=== PATIENT | male | born 1960 | race Two or more races ===

== ENCOUNTER 2017-01-23 17:08 | Inpatient (IN) | payer MEDICARE, OTHER ==
[~2017-01-23] VITALS: Ht 182.9 cm; Wt 83.1 kg
--- NOTE | 2017-01-23 17:26 | NUR ---
LETTY FROM [facility] FOR FOOT WOUND TREATMENT AND EVALUATION. PATIENT IS AAO4. APPEARS IN NO APPARENT DISRESS, RESPIRATION EVEN AND UNLABORED. PT'S RIGHT COVERED WITH DRESSING, SPLINT ON LLE ALSO NOTED. PATIENT 'S HAD LEFT AKA.
[2017-01-23] MEDS ORDERED: IV NS 0.9% 1,000 ML BAG IV ONE (18:00)
[2017-01-23] MEDS ORDERED: PIPERACILLIN /TAZOBACTAM 3.375 G in IV D5W 50 ML IV ONE (18:00)
[2017-01-23 18:01] LABS: BASOPHILS % (AUTO) 0.5 % (0.0-2.0); EOSINOPHILS # (AUTO) 0.5 /CMM (0.0-0.7); HEMATOCRIT 28 % (39-51); HEMOGLOBIN 9.3 g/dL (13.5-17.5); LYMPHOCYTES # (AUTO) 2.4 /CMM (0.8-4.8); LYMPHOCYTES % (AUTO) 26.9 % (20.0-44.0); MEAN CORPUSCULAR HEMOGLOBIN 26 PG (26.0-33.0); MEAN CORPUSCULAR HGB CONC 33 g/dl (31.0-36.0); MEAN CORPUSCULAR VOLUME 79 fL (80-96); MONOCYTES # (AUTO) 0.6 /CMM (0.1-1.30); MONOCYTES % (AUTO) 7.1 % (2.0-12.0); NEUTROPHILS # (AUTO) 5.5 /CMM (1.8-8.9); NEUTROPHILS % (AUTO) 60.5 % (43.0-81.0); PLATELET COUNT (AUTO) 420 /CMM (150-450); RDW COEFFICIENT OF VARIATION 16.7 (11.5-15.0); RED BLOOD CELL COUNT(AUTO) 3.61 MIL/uL (4.5-6.0)
--- NOTE | 2017-01-23 18:02 | NUR ---
CALLED NURSING SUP. FOR MS BED
[2017-01-23 18:09] LABS: POTASSIUM 3.9 mmol/L (3.5-5.1)
[2017-01-23 18:12] LABS: INR 1.09 (0.87-1.13); PROTHROMBIN TIME 11.3 SECS (9.5-12.7)
[2017-01-23 18:15] LABS: ALBUMIN 1.9 g/dL (3.4-5.0); BILIRUBIN,TOTAL 0.1 mg/dL (0.2-1.0); TOTAL PROTEIN, SERUM 8.4 g/dL (6.4-8.2)
--- NOTE | 2017-01-23 18:15 | NUR ---
MS 327-2
[2017-01-23 18:16] LABS: CALCIUM, SERUM 7.8 mg/dL (8.5-10.1); CREATININE 1.9 mg/dL (0.6-1.3)
--- NOTE | 2017-01-23 18:27 | NUR ---
REPORT GIVEN TO KRISTI HAN FOR DEBORAH
--- NOTE | 2017-01-23 19:20 | NUR ---
WOUND DRESSING CHANGED/
--- NOTE | 2017-01-23 19:20 | NUR ---
transfer to [facility] - accepted by Aj LORA
--- NOTE | 2017-01-23 19:21 | NUR ---
[facility] TRANSPORTED TO [place]. [facility]
--- NOTE | 2017-01-23 19:30 | NUR ---
RN NOTES RECEIVED PT FROM ER WITH DX. OF RIGHT FOOT WOUND, A/OX3, PICC LINE ON THE LEFT UPPER ARM, DRESSING ON THE RIGHT FOOT DRY AND INTACT, BUT NEEDS TO OPEN THE DRESSING TO TAKE PICTURE OF THE WOUND. ADMISSION INSTRUCTION RENDERED, CALL LIGHT WITHIN REACH, SIDERAILS UPX2 CONTINUE TO MONITOR
[2017-01-23 20:00] VITALS: BP 139/70
--- NOTE | 2017-01-23 20:45 | NUR ---
RN NOTES PAGED DR. LR FOR ADMISSION ORDERS.. DR. LR WILL PUT THE ADMISSION ORDER IN THE COMPUTER
[2017-01-23] MEDS ORDERED: ALLO100T PO (20:57)
[2017-01-23] MEDS ORDERED: DOCU-25 PO (20:57)
[2017-01-23] MEDS ORDERED: ACET-868 PO (20:57)
[2017-01-23] MEDS ORDERED: EPOE4000 SQ (20:57)
[2017-01-23] MEDS ORDERED: ATOR40TA PO (20:57)
[2017-01-23] MEDS ORDERED: METF1000 PO (21:02)
[2017-01-23] MEDS ORDERED: GLIP10TA11 PO (21:02)
[2017-01-23] MEDS ORDERED: ASPI-605 PO (21:02)
[2017-01-23] MEDS ORDERED: INSU3INS6 SUBCUT (21:02)
[2017-01-23] MEDS ORDERED: LISI10TA5 PO (21:02)
[2017-01-23] MEDS ORDERED: ACETAMINOPHEN 325 MG TABLET PO PRN (21:30)
[2017-01-23] MEDS ORDERED: ONDANSETRON HCL/PF 4 MG/2 ML VIAL IVP PRN (21:30)
[2017-01-23] MEDS ORDERED: DEXTROSE 50%-WATER 50 ML DISP.SYRIN IV PRN (22:00)
[2017-01-23] MEDS ORDERED: *INSULIN REGULAR(HUMULIN R)HUM 100 UNIT/ML VIAL SQ PRN (22:00)
[2017-01-23] MEDS ORDERED: ATORVASTATIN 40 MG TABLET ONE (22:34)
[2017-01-23] MEDS: ATORVASTATIN 40 MG TABLET PO SCH (22:35)
[2017-01-23] MEDS: BLOOD SUGAR DIAGNOSTIC 1 EACH STRIP VI SCH (22:35)
--- NOTE | 2017-01-23 23:30 | NUR ---
RN NOTES SENIOR MANUFACTURING ENGINEER CALLED PHARMACY [facility] SPECIALIST FOR VANCOMYCIN ORDER. SPOKE TO ОЛЕГ SEARS AND GOT A TELEPHONE ORDER OF VANCOMYCIN 1 GM ONCE, ORDER NOTED AND CARRIED OUT
[2017-01-24] MEDS ORDERED: PIPERACILLIN /TAZOBACTAM 2.25 G VIAL IV ONE ×2 (00:11→05:05)
[2017-01-24] MEDS ORDERED: VANCOMYCIN 1 GM VIAL ONE (00:11)
[2017-01-24] MEDS: PIPERACILLIN /TAZOBACTAM 2.25 G in IV D5W 50 ML IV SCH ×2 (00:38→05:41)
[2017-01-24] MEDS: IV 1/2NS 1000 ML 1,000 ML IV PRN ×2 (00:38→20:30)
[2017-01-24] MEDS ORDERED: VANCOMYCIN 1 GM in IV D5W 250 ML IV SCH (01:00)
[2017-01-24] MEDS: BLOOD SUGAR DIAGNOSTIC 1 EACH STRIP VI SCH ×4 (06:14→21:26)
--- NOTE | 2017-01-24 06:30 | NUR ---
RN NOTES BLOOD SUGAR-137- REFUSED INSULIN
--- NOTE | 2017-01-24 06:59 | NUR ---
RN NOTES SLEEPING BUT AROUSABLE, DENIES PAIN, NO SOB, MORNING CARER RENDERED, CALL LIGHT WITHIN REACH, SIDERAILS UPX2 PT. NEEDS ATTENDED
--- NOTE | 2017-01-24 07:40 | NUR ---
RN NOTES RECEIVED PATIENT ASLEEP COMFORTABLY IN BED, EASILY AROUSABLE DURING CARE,ABLE TO MAKE NEEDS KNOWN. RESPIRATIONS EVEN AND UNLABORED, IN NO APPARENT PAIN OR DISCOMFORT AT THIS TIME. IV ACCESS PATENT AND INTACT NO REDNESS OR INFILTRATION NOTED AT THIS TIME MD AWARE, SAFETY MEASURES IN PLACE, WILL CONTINUE TO MONITOR
[2017-01-24 08:00] VITALS: BP 108/62
[2017-01-24 08:30] LABS: ALBUMIN 1.8 g/dL (3.4-5.0); BILIRUBIN,TOTAL 0.2 mg/dL (0.2-1.0); CALCIUM, SERUM 7.9 mg/dL (8.5-10.1); CREATININE 1.7 mg/dL (0.6-1.3); MAGNESIUM 1.8 mg/dL (1.8-2.4); PHOSPHORUS 3.3 mg/dL (2.5-4.9); POTASSIUM 3.8 mmol/L (3.5-5.1)
[2017-01-24 08:31] LABS: THYROID STIMULATING HORMONE 0.697 uIU/mL (0.358-3.74)
[2017-01-24 08:40] LABS: BASOPHILS # (AUTO) 0.1 /CMM (0.0-0.2); BASOPHILS % (AUTO) 0.7 % (0.0-2.0); EOSINOPHILS # (AUTO) 0.5 /CMM (0.0-0.7); EOSINOPHILS % (AUTO) 5.6 % (0.0-6.0); HEMATOCRIT 29 % (39-51); LYMPHOCYTES # (AUTO) 2.1 /CMM (0.8-4.8); MEAN CORPUSCULAR HEMOGLOBIN 25 PG (26.0-33.0); MEAN CORPUSCULAR HGB CONC 32 g/dl (31.0-36.0); MEAN CORPUSCULAR VOLUME 80 fL (80-96); MONOCYTES # (AUTO) 0.6 /CMM (0.1-1.30); MONOCYTES % (AUTO) 7.1 % (2.0-12.0); NEUTROPHILS # (AUTO) 5.4 /CMM (1.8-8.9); NEUTROPHILS % (AUTO) 62.6 % (43.0-81.0); PLATELET COUNT (AUTO) 354 /CMM (150-450); RDW COEFFICIENT OF VARIATION 18.4 (11.5-15.0); RED BLOOD CELL COUNT(AUTO) 3.57 MIL/uL (4.5-6.0); WHITE BLOOD COUNT (AUTO) 8.6 K/uL (4.3-11.0)
[2017-01-24 09:00] VITALS: BP 108/62
[2017-01-24] MEDS ORDERED: FEE PK DOSING 1 MIN EA MC ONE (09:16)
[2017-01-24] MEDS: DOCUSATE SODIUM 100 MG CAPSULE PO SCH (09:23)
[2017-01-24] MEDS: ASPIRIN EC 81 MG TABLET.DR PO SCH (09:24)
[2017-01-24] MEDS: ALLOPURINOL 100 MG TABLET PO SCH (09:24)
[2017-01-24] MEDS: PANTOPRAZOLE 40 MG TABLET.DR PO SCH (09:26)
[2017-01-24] MEDS ORDERED: MORPHINE SULFATE INJ 4 MG/ML DISP.SYRIN IV PRN (09:30)
[2017-01-24] MEDS: INSULIN REGULAR, HUMAN 100 UNIT/ML 3 ML VIAL SQ PRN ×2 (12:15→16:40)
[2017-01-24] MEDS: PIPERACILLIN /TAZOBACTAM 3.375 G in IV D5W 50 ML IV SCH ×2 (12:18→17:09)
[2017-01-24] MEDS: VANCOMYCIN 0.75 GM in IV D5W 250 ML IV SCH (13:42)
--- NOTE | 2017-01-24 15:54 | NUR ---
RN NOTES NOTIFIED DR MARYANN LORA, ABOUT PT'S RIGHT FOOT WITH SMALL AMOUNT OF CONTINUOUS BLEEDING. PER DR WOLF, MASKING MACHINE OPERATOR WILL SEE PT WILL CONTINUE TO MONITOR
[2017-01-24 16:00] VITALS: BP 123/72
--- NOTE | 2017-01-24 19:14 | NUR ---
MS RN closing notes Patient Awake, alert and verbally responsive. Respirations are even and unlabored, not in any acute distress noted. Denies any pain at this time. Changed picc line dressing, pt tolerated procedure well. Reinforced dressing to right foot. Safety measures in place, all needs met and rendered. Will continue to follow the plan of care and endorse to next shift for continuity of care.
--- NOTE | 2017-01-24 19:30 | NUR ---
RN NOTES RECEIVED PT SLEEPING BUT AROUSABLE, IV FLUID 1/2 NS RUNNING @ 70ML/HR, DRESSING ON THE RIGHT FOOT DRY AND INTACT, PICC CHARLES IN PLACE, CALL LIGHT WITHIN REACH, SIDERAILS UPX2 CONTINUE TO MONITOR
[2017-01-24 20:00] VITALS: BP 127/73
[2017-01-24 20:18] VITALS: BP 125/73
[2017-01-24] MEDS: EPOETIN ALFA (2000 UNIT) 2,000 UNIT/ML VIAL SQ SCH (21:18)
[2017-01-24] MEDS: ATORVASTATIN 40 MG TABLET PO SCH (21:18)
[2017-01-24] MEDS: EPOETIN ALFA (4000 UNIT) 4,000 UNIT/ML VIAL SQ SCH (21:19)
[2017-01-24] MEDS: INSULIN DETEMIR 100 UNIT/ML CARTRIDGE SQ SCH (21:26)
[2017-01-25] MEDS: PIPERACILLIN /TAZOBACTAM 3.375 G in IV D5W 50 ML IV SCH ×4 (00:03→17:34)
[2017-01-25] MEDS: VANCOMYCIN 0.75 GM in IV D5W 250 ML IV SCH ×2 (00:55→13:00)
[2017-01-25] MEDS ORDERED: VANCOMYCIN 1 GM in IV D5W 250 ML IV SCH (01:00)
--- NOTE | 2017-01-25 06:19 | NUR ---
RN NOTES PT REFUSED TO CHANGE THE DRESSING ON HIS PICC LINE
--- NOTE | 2017-01-25 06:22 | NUR ---
RN NOTES AWAKE, PICC CHARLES IN PLACE, DENIES PAIN, NO SOB, DRESSING ON THE RIGHT FOOT DRY AND INTACT,MORNING CARE RENDERED, CALL LIGHT WITHIN REACH, SIDERAILS UPX2 , PT. NEEDS ATTENDED
[2017-01-25 06:44] LABS: BASOPHILS % (AUTO) 0.4 % (0.0-2.0); EOSINOPHILS # (AUTO) 0.4 /CMM (0.0-0.7); EOSINOPHILS % (AUTO) 4.4 % (0.0-6.0); HEMATOCRIT 28 % (39-51); HEMOGLOBIN 9.1 g/dL (13.5-17.5); LYMPHOCYTES # (AUTO) 2.1 /CMM (0.8-4.8); LYMPHOCYTES % (AUTO) 24.3 % (20.0-44.0); MEAN CORPUSCULAR HEMOGLOBIN 26 PG (26.0-33.0); MEAN CORPUSCULAR HGB CONC 33 g/dl (31.0-36.0); MEAN CORPUSCULAR VOLUME 79 fL (80-96); MONOCYTES # (AUTO) 0.6 /CMM (0.1-1.30); MONOCYTES % (AUTO) 6.6 % (2.0-12.0); NEUTROPHILS # (AUTO) 5.6 /CMM (1.8-8.9); NEUTROPHILS % (AUTO) 64.3 % (43.0-81.0); PLATELET COUNT (AUTO) 360 /CMM (150-450); RDW COEFFICIENT OF VARIATION 18.1 (11.5-15.0); RED BLOOD CELL COUNT(AUTO) 3.47 MIL/uL (4.5-6.0); WHITE BLOOD COUNT (AUTO) 8.7 K/uL (4.3-11.0)
[2017-01-25] MEDS: INSULIN REGULAR, HUMAN 100 UNIT/ML 3 ML VIAL SQ PRN ×2 (06:54→12:10)
[2017-01-25 07:01] LABS: CALCIUM, SERUM 7.7 mg/dL (8.5-10.1); CREATININE 1.7 mg/dL (0.6-1.3); POTASSIUM 3.7 mmol/L (3.5-5.1)
[2017-01-25] MEDS: BLOOD SUGAR DIAGNOSTIC 1 EACH STRIP VI SCH ×4 (07:30→21:31)
[2017-01-25 08:00] VITALS: BP 101/65
[2017-01-25] MEDS: DOCUSATE SODIUM 100 MG CAPSULE PO SCH (08:43)
[2017-01-25] MEDS: PANTOPRAZOLE 40 MG TABLET.DR PO SCH (08:43)
[2017-01-25] MEDS: ALLOPURINOL 100 MG TABLET PO SCH (08:43)
[2017-01-25] MEDS: ASPIRIN EC 81 MG TABLET.DR PO SCH (08:43)
--- NOTE | 2017-01-25 10:04 | NUR ---
WOUND CARE CONSULT: PT REFUSED REMOVAL OF RT LOWER EXTREMITY SPLINT/DRESSING. PT NOTED TO HAVE RASH TO BUTTOCKS AND PERINEAL AREAS, PRESENT ON ADMISSION. CURRENT ANGEL SCORE IS 15. PER MD NOTES, PODIATRY AND VASCULAR CONSULTS WERE CALLED BY . ALL SKIN PROTECTION MEASURES IN PLACE AND DISCUSSED WITH NURSING STAFF. WILL SEE FIDE. IN AGREEMENT WITH PLAN OF CARE. Addendum: 01/25/17 at 1006 by YONATHAN EUCEDA Amended: Links added. Addendum: 01/25/17 at 1008 by YONATHAN MCCLAINU LEFT BKA STUMP CLEAR WITH SOME BROWNISH DISCOLORATION.
[2017-01-25] MEDS ORDERED: Z GUARD REMEDY 2 OZ OINT TP PRN (10:30)
--- NOTE | 2017-01-25 12:00 | NUR ---
RN NOTES RECEIVED CALL FROM PHARMACIST, ALBERT, PER PHARMACIST TO HOLD VANCOMYCIN IV DOSE AND WAIT FOR VANCO TROUGH LEVEL, WILL HOLD VANCO DOSE ORDERED AND CONTINUE TO MONITOR
[2017-01-25] MEDS: Z GUARD REMEDY 2 OZ OINT TP SCH (12:03)
[2017-01-25] MEDS: CLOTRIMAZOLE 1% 15 GM TUBE TP SCH ×2 (12:03→17:34)
--- NOTE | 2017-01-25 14:24 | NUR ---
MS RN NOTES VANCOMYCIN TROUGH RESULT RECEIVED NOTED 31, HELD VANCO DOSE ORDERED, NOTIFIED PHARMACY.
[2017-01-25 16:00] VITALS: BP 106/64
--- NOTE | 2017-01-25 16:00 | NUR ---
RN NOTES NOTED PT WITH CENTRAL LINE DRESSING WITH NEED FOR CHANGE SLIGHTLY COMING OFF ON ONE EDGE, PT REFUSING X3 STATING "NO IT IS OKAY DONT TOUCH IT" REINFORCED EDUCATION X3 AND REINFORCED DRESSING WITH TAPE AND WILL REATTEMPT AND NOTIFY NEXT RN TO CHANGE IF CONTINUES TO REFUSE
[2017-01-25] MEDS: LACTOBACILLUS RHAMNOSUS GG 1 EACH CAP.SPRINK PO SCH (17:34)
[2017-01-25] MEDS: IV 1/2NS 1000 ML 1,000 ML IV PRN (18:00)
--- NOTE | 2017-01-25 19:19 | NUR ---
MS RN CLOSING NOTES Patient in bed awake, alert and verbally responsive. No SOB noted. Respirations regular, even and unlabored. No acute distress noted. Denies any pain. No facial grimacing noted. JUDD PICC line intact and patent, no redness, no swelling noted.Seen by Dr Muller, right foot debridgement done, pt tolerated procedure well. Safety measures in place, bed in low position and locked. All needs attended and met. Due meds given and no ASE noted. Will continue to monitor and endorse to incoming shift for continuity of care.
--- NOTE | 2017-01-25 19:20 | NUR ---
MS/RN NOTES RECEIVED PT. LYING IN BED. AWAKE, ALERT AND ORIENTED X3. BREATHING EVEN AND UNLABORED ON ROOM AIR. NO SOB, RESPIRATORY DISTRESS OR COMPLAINTS OF PAIN NOTED AT THIS TIME. PT. WITH LEFT UPPER ARM PICC PRESENT, PATENT AND INTACT ADMINISTERING TO PT. 1/2 NS @ 70 ML/HR. BED LOCKED AND IN LOWEST POSITION, SIDE RAILS UP X2, BED ALARM ON, CALL LIGHT WITHIN REACH, WILL CONTINUE TO MONITOR.
[2017-01-25 20:00] VITALS: BP 111/71
[2017-01-25] MEDS: ATORVASTATIN 40 MG TABLET PO SCH (21:31)
[2017-01-25] MEDS: INSULIN DETEMIR 100 UNIT/ML CARTRIDGE SQ SCH (21:32)
[2017-01-26] MEDS: PIPERACILLIN /TAZOBACTAM 3.375 G in IV D5W 50 ML IV SCH ×5 (00:17→23:35)
[2017-01-26] MEDS: BLOOD SUGAR DIAGNOSTIC 1 EACH STRIP VI SCH ×4 (06:50→21:16)
--- NOTE | 2017-01-26 07:00 | NUR ---
MS/RN NOTES PT. IS LYING IN BED RESTING. BREATHING EVEN AND UNLABORED ON ROOM AIR. NO SOB, RESPIRATORY DISTRESS OR COMPLAINTS OF PAIN NOTED AT THIS TIME. PT. WITH LEFT UPPER ARM PICC PRESENT, PATENT AND INTACT ADMINISTERING TO PT. 1/2 NS @ 70 ML/HR. ALL PT. NEEDS MET. BED LOCKED AND IN LOWEST POSITION, SIDE RAILS UP X2, BED ALARM ON, CALL LIGHT WITHIN REACH, WILL ENDORSE TO DAYSHIFT NURSE FOR CONTINUITY OF CARE.
--- NOTE | 2017-01-26 07:25 | NUR ---
RN OPENING NOTES PT. IS IN BED AWAKE, A&OX3. BREATHING UNLABORED, AND EVENLY ON ROOM AIR. NO S/S OF ACUTE DISTRESS. IV FLUIDS RUNNING AT 70 ML/HR VIA LEFT UPPER ARM CENTRAL LINE. BED IS IN LOWEST, AND LOCKED POSITION. 2 SIDE RAILS UP, AND INSTRUCTED PT. TO USE CALL LIGHT FOR ASSISTANCE. ALL NEEDS MET. WILL CONTINUE TO ASSESS AND MONITOR.
[2017-01-26 08:00] VITALS: BP 107/68
[2017-01-26] MEDS: VANCOMYCIN 0.75 GM in IV D5W 250 ML IV SCH (08:00)
--- NOTE | 2017-01-26 08:00 | NUR ---
RN NOTES UNABLE TO ADMINISTER VANCOMYCIN IV DUE TO PT. REFUSING BLOOD DRAW FOR VANCO TROUGH, AND VANCO TROUGH LEVEL IS 31.
--- NOTE | 2017-01-26 08:00 | NUR ---
RN NOTES VANCOMYCIN WAS NOT ADMINISTERED DUE TO HIGH TROUGH PHARMACY NOTIFIED.
--- NOTE | 2017-01-26 08:00 | NUR ---
RN NOTES PT. REFUSED TO HAVE BLOOD DRAWN AFTER BEING EXPLAINED THE RISKS, AND BENEFITS.
--- NOTE | 2017-01-26 08:20 | NUR ---
RN NOTES PT. AGREED TO HAVE BLOOD DRAWN ONLY FROM CENTRAL LINE. WHEN DRAWING BLOOD FROM CENTRAL LINE, CENTRAL LINE WAS UNABLE TO PRODUCE ANY BLOOD RETURN. LAB WAS UNABLE TO COLLECT BLOOD. CRM TECHNICAL LEAD WAS NOTIFIED AND SAID SHE CAN ADDRESS TO PICC LINE NURSE.
--- NOTE | 2017-01-26 09:00 | NUR ---
RN NOTES CHARGE NURSE CHECKED PT.'S PICC LINE. PICC LINE IS PATENT BUT UNABLE TO GET A BLOOD RETURN.
[2017-01-26] MEDS: DOCUSATE SODIUM 100 MG CAPSULE PO SCH (09:13)
[2017-01-26] MEDS: ASPIRIN EC 81 MG TABLET.DR PO SCH (09:13)
[2017-01-26] MEDS: LACTOBACILLUS RHAMNOSUS GG 1 EACH CAP.SPRINK PO SCH ×2 (09:13→17:42)
[2017-01-26] MEDS: ALLOPURINOL 100 MG TABLET PO SCH (09:13)
[2017-01-26] MEDS: CLOTRIMAZOLE 1% 15 GM TUBE TP SCH ×2 (09:13→17:42)
[2017-01-26] MEDS: Z GUARD REMEDY 2 OZ OINT TP SCH (09:14)
[2017-01-26] MEDS: PANTOPRAZOLE 40 MG TABLET.DR PO SCH (09:17)
--- NOTE | 2017-01-26 14:24 | NUR ---
RN NOTES CENTRAL LINE DRESSING WAS CHANGED WITH CHARGE NURSE WITHOUT ANY COMPLICATIONS.
[2017-01-26 16:00] VITALS: BP 121/71
--- NOTE | 2017-01-26 16:00 | NUR ---
RN NOTES WOUND CARE PERFORMED AND CLEAN DRESSING APPLIED PER MD ORDERS. PT. TOLERATED PROCEDURE WELL WITHOUT COMPLICATIONS.
--- NOTE | 2017-01-26 18:54 | NUR ---
RN CLOSING NOTES PT. IS IN BED AWAKE, A&OX3. BREATHING UNLABORED, AND EVENLY ON ROOM AIR. NO S/S OF ACUTE DISTRESS. IV FLUIDS RUNNING AT 70 ML/HR VIA LEFT UPPER ARM CENTRAL LINE. BED IS IN LOWEST, AND LOCKED POSITION. 2 SIDE RAILS UP, AND INSTRUCTED PT. TO USE CALL LIGHT FOR ASSISTANCE. ALL NEEDS MET. WILL ENDORSE REPORT TO NURSE.
--- NOTE | 2017-01-26 19:30 | NUR ---
MS RN OPENING NOTES PT. IS IN BED AWAKE, A&OX3. BREATHING UNLABORED, AND EVENLY ON ROOM AIR. NO S/S OF ACUTE DISTRESS. IV FLUIDS RUNNING AT 70 ML/HR VIA LEFT UPPER ARM CENTRAL LINE. DRESSING IS INTACT NO SIGNS OF LEAKAGE. PT STATED HE DID NOT WANT TO BE BOTHERED ON THE BURLING AND JOINING SUPERVISOR, EXPLAINED TO PATIENT THE MEDICATION AND DRESSING CHANGE NEEDING TO BE DONE ON MY SHIFT. BED IS IN LOW AND LOCKED POSITION, CALL LIGHT IS WITHIN REACH. WILL CONTINUE TO MONITOR AND REASSESS PT HE ALLOWS.
[2017-01-26 20:00] VITALS: BP 106/68
[2017-01-26] MEDS: ATORVASTATIN 40 MG TABLET PO SCH (21:02)
[2017-01-26] MEDS: EPOETIN ALFA (4000 UNIT) 4,000 UNIT/ML VIAL SQ SCH (21:04)
[2017-01-26] MEDS: EPOETIN ALFA (2000 UNIT) 2,000 UNIT/ML VIAL SQ SCH (21:04)
[2017-01-26] MEDS: IV 1/2NS 1000 ML 1,000 ML IV PRN (21:11)
[2017-01-26] MEDS: INSULIN DETEMIR 100 UNIT/ML CARTRIDGE SQ SCH (21:16)
--- NOTE | 2017-01-26 21:20 | NUR ---
MS RN NOTES INSULIN WAS HELD, PT IS STATING THAT HE WAS NOT GOING TO EAT OR HAVE A SNACK TONIGHT. WILL CONTINUE TO MONITOR
--- NOTE | 2017-01-27 05:48 | NUR ---
MS RN NOTES PT CONTINUES TO REFUSE BLOOD DRAWS, EDUCATION WAS GIVEN. PT STILL REFUSED. LAB WILL COME BACK AT 0900 TO TRY AGAIN
[2017-01-27] MEDS: PIPERACILLIN /TAZOBACTAM 3.375 G in IV D5W 50 ML IV SCH ×3 (06:10→17:05)
[2017-01-27] MEDS: BLOOD SUGAR DIAGNOSTIC 1 EACH STRIP VI SCH ×4 (06:12→22:00)
--- NOTE | 2017-01-27 06:18 | NUR ---
MS RN NOTES PT REFUSED DRESSING CHANGED, EDUCATION WAS GIVEN. PT CONTINUED TO REFUSE. WILL ENDORSE TO DAY SHIFT
--- NOTE | 2017-01-27 06:36 | NUR ---
MS RN CLOSING NOTES PT IS IN BED RESTING, NO SIGNS OF SOB OR DISTRESS. BREATHING EVENLY AND UNLABORED ON RA. IV ACCESS INFESTING WITH FLUIDS ALL NEEDS WERE ANTICIPATED AND MET. BED IS IN LOW AND LOCKED POSITION, CALL LIGHT WITHIN REACH. WILL ENDORSE TO DAY SHIFT
--- NOTE | 2017-01-27 07:18 | NUR ---
RN OPENING NOTES RECEIVED PATIENT IN BED RESTING, A/OX3. NO ACUTE DISTRESS, NO SOB NOTED. IV SITE INTACT AND PATENT. KEPT PATIENT SAFE AND COMFORTABLE. BED IN LOCKED LOW POSITION, SIDERAILS UPX2, CALL LIGHT IN REACH. WILL CONTINUE TO MONITOR ACCORDINGLY.
[2017-01-27] MEDS: PANTOPRAZOLE 40 MG TABLET.DR PO SCH (07:30)
[2017-01-27 08:00] VITALS: BP 102/62
[2017-01-27] MEDS: VANCOMYCIN 0.75 GM in IV D5W 250 ML IV SCH (08:00)
[2017-01-27] MEDS: LACTOBACILLUS RHAMNOSUS GG 1 EACH CAP.SPRINK PO SCH ×2 (09:00→17:02)
[2017-01-27] MEDS: CLOTRIMAZOLE 1% 15 GM TUBE TP SCH ×2 (09:00→17:00)
[2017-01-27] MEDS: ALLOPURINOL 100 MG TABLET PO SCH (09:00)
[2017-01-27] MEDS: Z GUARD REMEDY 2 OZ OINT TP SCH (09:00)
[2017-01-27] MEDS: ASPIRIN EC 81 MG TABLET.DR PO SCH (09:00)
[2017-01-27] MEDS: DOCUSATE SODIUM 100 MG CAPSULE PO SCH (09:00)
--- NOTE | 2017-01-27 09:00 | NUR ---
RN NOTES PATIENT REFUSED MEDICATIONS. EDUCATE AND ENCOURAGED PATIENT BUT STILL REFUSED MEDICATIONS. WILL NOTIFY MD.
--- NOTE | 2017-01-27 09:00 | NUR ---
RN NOTES PER PHARMACY, HOLD VANCOMYCIN. PATIENT REFUSING BLOOD DRAW
[2017-01-27 16:00] VITALS: BP 106/64
[2017-01-27] MEDS: IV 1/2NS 1000 ML 1,000 ML IV PRN (17:09)
--- NOTE | 2017-01-27 17:30 | NUR ---
RN NOTES PATIENT REFUSED ACCU CHECK, EDUCATED PATIENT BUT STILL REFUSED. WILL MONITOR ACCORDINGLY.
--- NOTE | 2017-01-27 17:30 | NUR ---
RN NOTES PATIENT REFUSED WOUND CARE. PATIENT SAID "NOT NOW, MAYBE LATER TONIGHT".
--- NOTE | 2017-01-27 19:00 | NUR ---
RN CLOSING NOTES NO SIGNIFICANT CHANGE IN PATIENT'S CONDITION. NO ACUTE DISTRESS, NO SOB, DENIES PAIN OR DISCOMFORT. ALL NEEDS ATTENDED AND PROVIDED. BED IN LOCKED, LOW POSITION, SIDERAILS UPX2, CALL LIGHT IN REACH. ENDORSED TO ACID POLYMERIZATION OPERATOR RN FOR DEBORAH.
--- NOTE | 2017-01-27 19:30 | NUR ---
MS/RN OPENING NOTES PT RECEIVED SITTING IN THE CHAIR, SKIN CARE PERFORMED. A/OX3. ON ROOM AIR, BREATHING EVEN AND UNLABORED. IN NO APPARENT DISTRESS, NO S/S OF PAIN. JUDD PICC LINE IN PLACE, IVF CURRENTLY ON HOLD. BED IN LOW/LOCKED POSITION WITH CALL LIGHT IN REACH. SIDE RAILS UPX2. WILL CONTINUE TO MONITOR
[2017-01-27 20:00] VITALS: BP 98/61
[2017-01-27 20:13] VITALS: BP 98/61
[2017-01-27 21:51] LABS: CALCIUM, SERUM 8.3 mg/dL (8.5-10.1); MAGNESIUM 1.9 mg/dL (1.8-2.4); PHOSPHORUS 3.2 mg/dL (2.5-4.9); POTASSIUM 3.6 mmol/L (3.5-5.1)
[2017-01-27 21:55] LABS: BASOPHILS # (AUTO) 0.1 /CMM (0.0-0.2); BASOPHILS % (AUTO) 0.8 % (0.0-2.0); EOSINOPHILS # (AUTO) 0.4 /CMM (0.0-0.7); HEMATOCRIT 29 % (39-51); HEMOGLOBIN 9.4 g/dL (13.5-17.5); LYMPHOCYTES # (AUTO) 1.9 /CMM (0.8-4.8); MEAN CORPUSCULAR HEMOGLOBIN 26 PG (26.0-33.0); MEAN CORPUSCULAR HGB CONC 33 g/dl (31.0-36.0); MEAN CORPUSCULAR VOLUME 80 fL (80-96); MONOCYTES # (AUTO) 0.7 /CMM (0.1-1.30); MONOCYTES % (AUTO) 7.1 % (2.0-12.0); NEUTROPHILS # (AUTO) 6.2 /CMM (1.8-8.9); NEUTROPHILS % (AUTO) 67.1 % (43.0-81.0); PLATELET COUNT (AUTO) 463 /CMM (150-450); RDW COEFFICIENT OF VARIATION 19.4 (11.5-15.0); RED BLOOD CELL COUNT(AUTO) 3.62 MIL/uL (4.5-6.0); WHITE BLOOD COUNT (AUTO) 9.2 K/uL (4.3-11.0)
[2017-01-27] MEDS: INSULIN DETEMIR 100 UNIT/ML CARTRIDGE SQ SCH (22:00)
[2017-01-27] MEDS: ATORVASTATIN 40 MG TABLET PO SCH (22:46)
--- NOTE | 2017-01-27 22:58 | NUR ---
MS/RN NOTES TRIED TO CHECK BLOOD SUGAR AND DIDNT OBTAIN ENOUGH BLOOD FOR THE MACHINE TO READ IT. PT REFUSED ANOTHER ATTEMPT TO CHECK SUGAR. EDUCATION PROVIDED. PT STILL REFUSING. ALSO REFUSING WOUND CARE/PICTURES AT THIS TIME. WILL TRY AGAIN LATER
[2017-01-28] MEDS: BLOOD SUGAR DIAGNOSTIC 1 EACH STRIP VI SCH ×4 (06:12→21:25)
[2017-01-28] MEDS: PIPERACILLIN /TAZOBACTAM 3.375 G in IV D5W 50 ML IV SCH ×5 (07:26→17:40)
--- NOTE | 2017-01-28 07:30 | NUR ---
MS/RN CLOSING NOTES PT RESTING IN BED, A/OX3. ON ROOM AIR, BREATHING EVEN AND UNLABORED. NO APPARENT DISTRESS, SOB OR COMPLAINTS OF PAIN AT THIS TIME. PT REFUSED PICTURES AND WOUND CARE DURING SHIFT, STATING "HE WANTS TO BE LEFT ALONE TONIGHT. MAYBE IN THE MORNING". BLOOD SUGAR THIS AM =127, NO INSULIN COVERAGE PER SLIDING SCALE. JUDD PICC LINE RUNNING IVF ORDERED. PT REFUSED LAB DRAWS THIS AM, HE "HAD THEM DRAWN YESTERDAY". NO SIGNIFICANT CHANGES DURING SHIFT. BED IN LOW/LOCKED POSITION WITH CALL LIGHT IN REACH. AND SIDE RAILS UPX2. ENDORSED TO AM SHIFT DEBORAH.
--- NOTE | 2017-01-28 07:45 | NUR ---
MS RN OPENING NOTE PATIENT IS ALERT AND ORIENTED x4. NO PAIN AT THIS TIME. NO SOB OR DISTRESS NOTED. CALL LIGHT WITHIN REACH. SAFETY MEASURES IMPLEMENTED. ABLE TO COMMUNICATE NEEDS. LEFT UPPER ARM PICC LINE INTACT AND PATENT, FLUIDS RUNNING AT 70 ML/HR TOLERATING WELL. ON ROOM AIR O2 SAT AT 96 % TOLERATING WELL. WOUND TREATMENT TO BE DONE ON LEFT FOOT. BLOOD SUGAR MONITORING TO BE DONE THROUGHOUT SHIFT. PATIENT REFUSING LABS THIS MORNING. WILL CONTINUE TO MONITOR THROUGHOUT SHIFT
[2017-01-28 08:00] VITALS: BP 118/73
[2017-01-28] MEDS: VANCOMYCIN 0.75 GM in IV D5W 250 ML IV SCH (08:00)
--- NOTE | 2017-01-28 08:37 | NUR ---
MS RN NOTE PER PHARMACY TO HOLD VANCO IV DOSE. PATIENT REFUSING LAB DRAWS. LAST VANCO TROUGH 01/25. WILL INFORM CHARGE NURSE
[2017-01-28] MEDS: PANTOPRAZOLE 40 MG TABLET.DR PO SCH (08:39)
[2017-01-28] MEDS: DOCUSATE SODIUM 100 MG CAPSULE PO SCH (08:39)
[2017-01-28] MEDS: LACTOBACILLUS RHAMNOSUS GG 1 EACH CAP.SPRINK PO SCH ×2 (08:40→16:45)
[2017-01-28] MEDS: Z GUARD REMEDY 2 OZ OINT TP SCH (08:40)
[2017-01-28] MEDS: ASPIRIN EC 81 MG TABLET.DR PO SCH (08:40)
[2017-01-28] MEDS: ALLOPURINOL 100 MG TABLET PO SCH (08:40)
[2017-01-28] MEDS: CLOTRIMAZOLE 1% 15 GM TUBE TP SCH ×2 (08:41→16:46)
--- NOTE | 2017-01-28 08:46 | NUR ---
MS RN NOTE AFTER ADMINISTERING MEDICATION, I OFFERED PATIENT TO CHANGE WOUND DRESSING ON LEFT LOWER FOOT. PATIENT STATED " NO IT'S OKAY, ITS NOT BLOODY AT THIS TIME AND I DONT WANT IT TO BE CHANGED". EXPLAINED TO PATIENT IMPORTANCE OF CLEAN DRESSING BUT PATIENT STILL REFUSED AT THIS TIME.
[2017-01-28 16:00] VITALS: BP 130/71
[2017-01-28] MEDS: INSULIN REGULAR, HUMAN 100 UNIT/ML 3 ML VIAL SQ PRN (17:45)
[2017-01-28] MEDS: IV 1/2NS 1000 ML 1,000 ML IV PRN (17:47)
[2017-01-28 18:18] LABS: BASOPHILS # (AUTO) 0.1 /CMM (0.0-0.2); BASOPHILS % (AUTO) 0.7 % (0.0-2.0); EOSINOPHILS # (AUTO) 0.4 /CMM (0.0-0.7); EOSINOPHILS % (AUTO) 5.2 % (0.0-6.0); HEMATOCRIT 30 % (39-51); HEMOGLOBIN 9.8 g/dL (13.5-17.5); LYMPHOCYTES # (AUTO) 2.2 /CMM (0.8-4.8); LYMPHOCYTES % (AUTO) 30.4 % (20.0-44.0); MEAN CORPUSCULAR HEMOGLOBIN 26 PG (26.0-33.0); MEAN CORPUSCULAR HGB CONC 32 g/dl (31.0-36.0); MEAN CORPUSCULAR VOLUME 80 fL (80-96); MONOCYTES # (AUTO) 0.5 /CMM (0.1-1.30); MONOCYTES % (AUTO) 7.2 % (2.0-12.0); NEUTROPHILS % (AUTO) 56.5 % (43.0-81.0); PLATELET COUNT (AUTO) 448 /CMM (150-450); RDW COEFFICIENT OF VARIATION 19.3 (11.5-15.0); WHITE BLOOD COUNT (AUTO) 7.2 K/uL (4.3-11.0)
--- NOTE | 2017-01-28 18:36 | NUR ---
MS RN CLOSING NOTE PATIENT IS ALERT AND ORIENTED x4. NO PAIN AT THIS TIME. NO SOB OR DISTRESS NOTED. CALL LIGHT WITHIN REACH AT ALL TIMES. SAFETY MEASURES IMPLEMENTED. ABLE TO COMMUNICATE NEEDS. BLOOD SUGARS MONITORED THROUGHOUT SHIFT. IV INTACT AND PATENT, IV FLUIDS RUNNING AT 70 ML/HR TOLERATING WELL. ALL DUE MEDICATIONS GIVEN ORDERED. ALL NURSING CARE NEEDS ATTENDED TO. PATIENT REFUSED AM LABS x3 TODAY AND PATIENT ALSO REFUSED WOUND CARE DRESSING CHANGE x2. WILL ENDORSE TO CERTIFIED NURSING ATTENDANT NURSE FOR DEBORAH
[2017-01-28 19:01] LABS: CALCIUM, SERUM 8.4 mg/dL (8.5-10.1); CREATININE 1.6 mg/dL (0.6-1.3); MAGNESIUM 1.8 mg/dL (1.8-2.4); PHOSPHORUS 2.8 mg/dL (2.5-4.9); POTASSIUM 3.7 mmol/L (3.5-5.1)
--- NOTE | 2017-01-28 19:30 | NUR ---
MS RN OPENING NOTES: PATIENT IN BED, AOX4, ON ROOM AIR, BREATHING EVEN AND UNLABORED. APPEARS CALM AND IN NO DISTRESS. DENIES PAIN AT THIS TIME. JUDD PICC LINEI NTACT AND INFUSING WELL WITH 1/2 NS RUNNING AT 70 ML/HR. PROVIDED FOR COMFORT AND SAFETY. BED IN LOWEST AND LOCKED POSITION, SIDERAILS UP X 3. PROVIDED SNACKS REQUESTED. WILL CONT TO MONITOR.
--- NOTE | 2017-01-28 19:40 | NUR ---
RN NOTES: OUSMANE DUKE (ID) IN STATION, INFORMED HER THAT PATIENT IS REFUSING VANCO TROUGH DRAW, SO VANCO HAS BEEN HELD. NEW PO ANTIBIOTICS ORDERED.
[2017-01-28 20:00] VITALS: BP 112/59
[2017-01-28] MEDS ORDERED: LEVOFLOXACIN (500MG) 500 MG TABLET PO SCH (20:00)
[2017-01-28] MEDS: ATORVASTATIN 40 MG TABLET PO SCH (21:23)
[2017-01-28] MEDS: LINEZOLID 600 MG TABLET PO SCH (21:23)
[2017-01-28] MEDS: INSULIN DETEMIR 100 UNIT/ML CARTRIDGE SQ SCH (21:27)
[2017-01-28 21:48] VITALS: BP 112/58
--- NOTE | 2017-01-29 05:00 | NUR ---
RN NOTES: PATIENT AGREED TO HAVE WOUND DRESSING DONE. REMOVED OLD DRESSING, SPECIMEN FOR WOUND CX AND GS OBTAINED. CLEANSED WITH NS, PATTED DRY, PACKED WOUND WITH WET TO DRY DRESSING USING COTTON TIP APPLICATOR. COVERED WITH DRY DRESSING, KERLIX, SECURED WITH KATLIN BANDAGE AND REAPPLIED SPLINT. ELEVATED ON PILLOWS. PATIENT TOLERATED PROCEDURE WELL.
--- NOTE | 2017-01-29 06:15 | NUR ---
RN NOTES: PATIENT REFUSING AM BLOOD DRAW. EXPLAINED TO PATIENT THE NEED TO HAVE BLOOD DRAW DONE, STILL REFUSES. PATIENT ALSO REFUSES TO HAVE BLOOD DRAWN FROM PICC LINE, SAYING "BLOOD DOES NOT COME OUT FROM THERE".
[2017-01-29] MEDS: BLOOD SUGAR DIAGNOSTIC 1 EACH STRIP VI SCH ×2 (06:35→12:05)
[2017-01-29] MEDS: IV 1/2NS 1000 ML 1,000 ML IV PRN (06:48)
--- NOTE | 2017-01-29 06:56 | NUR ---
MS RN CLOSING NOTES: PATIENT IN BED, AOX4, ON ROOM AIR, BREATHING EVEN AND UNLABORED. APPEARS CALM AND IN NO DISTRESS. DUE MEDS GIVEN. PROVIDED FOR COMFORT AND SAFETY. MORNING CARE RENDERED. WOUND TREATMENT DONE. BLOOD SUGAR CHECKED IN AM AT 103 MG/DL, NO INSULIN INDICATED AT THIS TIME. BED IN LOWEST AND LOCKED POSITION, SIDERAILS UPX2, CALL LIGHT WITHIN REACH. WILL ENDORSE TO AM RN FOR DEBORAH.
--- NOTE | 2017-01-29 07:45 | NUR ---
MS RN OPENING NOTE PATIENT IS ALERT AND ORIENTED x3. NO PAIN AT THIS TIME. NO SOB OR DISTRESS NOTED. CALL LIGHT WITHIN REACH. SAFETY MEASURES IMPLEMENTED. ABLE TO COMMUNICATE NEEDS. LEFT UPPER ARM PICC LINE IN PLACE AND INTACT. LEFT BKA AND RIGHT FOOT WOUND DRESSING IN PLACE. BLOOD SUGARS TO BE MONITORED THROUGHOUT SHIFT. LABS THIS MORNING. IV FLUIDS RUNNING AT 70 ML/HR TOLERATING WELL. POSSIBLE DISCHARGE TODAY. WILL CONTINUE TO MONITOR THROUGHOUT SHIFT
[2017-01-29 08:00] VITALS: BP 126/76
[2017-01-29] MEDS: PANTOPRAZOLE 40 MG TABLET.DR PO SCH (08:42)
[2017-01-29] MEDS: DOCUSATE SODIUM 100 MG CAPSULE PO SCH (08:42)
[2017-01-29] MEDS: LINEZOLID 600 MG TABLET PO SCH (08:42)
[2017-01-29] MEDS: LACTOBACILLUS RHAMNOSUS GG 1 EACH CAP.SPRINK PO SCH (08:42)
[2017-01-29] MEDS: ASPIRIN EC 81 MG TABLET.DR PO SCH (08:42)
[2017-01-29] MEDS: ALLOPURINOL 100 MG TABLET PO SCH (08:42)
[2017-01-29] MEDS: Z GUARD REMEDY 2 OZ OINT TP SCH (08:43)
[2017-01-29] MEDS: CLOTRIMAZOLE 1% 15 GM TUBE TP SCH (08:47)
--- NOTE | 2017-01-29 14:28 | NUR ---
MS MACHINERY CLEANER NOTE PATIENT IS ALERT AND ORIENTED x3. NO PAIN AT THIS TIME. NO SOB OR DISTRESS NOTED. CALL LIGHT WITHIN REACH AT ALL TIMES. SAFETY MEASURES IMPLEMENTED. ABLE TO COMMUNICATE NEEDS. ALL DUE MEDICATIONS GIVEN ORDERED. ALL NURSING CARE NEEDS ATTENDED TO NEEDED. ALL BELONGINGS ACCOUNTED FOR. GAVE REPORT TO RN BINDER OPERATOR [facility]AYLEIGH AT [facility]. ALL DISCHARGE INSTRUCTIONS GIVENT O PATIENT AND RN, BOTH ABLE TO RETURN VERBAL INSTRUCTIONS. PICC LINE LEFT IN PATIENT WILL HAVE IV ANTIBIOTICS AT SNF FOR 4 WEEKS. LEFT VIA AMBULANCE WITH TWO SYSTEM SUPPORT SPECIALIST.
== END 2017-01-29 14:24 | DRG 628 ==
LOC: ER 17:10 → MED 18:59
PROVIDERS: ADMIT Internal Medicine; ATTEND Internal Medicine
PROC: 02HV33Z Insertion of Infusion Device into Superior Vena Cava, Percutaneous Approach (ICD-10-PCS; 2017-01-24)
PROC: B548ZZA Ultrasonography of Superior Vena Cava, Guidance (ICD-10-PCS; 2017-01-24)
PROC: 0QBN0ZZ Excision of Right Metatarsal, Open Approach (ICD-10-PCS; principal; 2017-01-25)
DX: E11.69 Type 2 diabetes mellitus with other specified complication (principal); E43 Unspecified severe protein-calorie malnutrition; M86.671 Other chronic osteomyelitis, right ankle and foot; N17.9 Acute kidney failure, unspecified; E11.22 Type 2 diabetes mellitus with diabetic chronic kidney disease; D68.59 Other primary thrombophilia; E11.621 Type 2 diabetes mellitus with foot ulcer; R53.2 Functional quadriplegia; E11.42 Type 2 diabetes mellitus with diabetic polyneuropathy; S93.01XA Subluxation of right ankle joint, initial encounter; D63.8 Anemia in other chronic diseases classified elsewhere; I12.9 Hypertensive chronic kidney disease with stage 1 through stage 4 chronic kidney disease, or unspecified chronic kidney disease; E11.51 Type 2 diabetes mellitus with diabetic peripheral angiopathy without gangrene; Z89.512 Acquired absence of left leg below knee; Z79.899 Other long term (current) drug therapy; Z79.82 Long term (current) use of aspirin; Z79.84 Long term (current) use of oral hypoglycemic drugs; L97.519 Non-pressure chronic ulcer of other part of right foot with unspecified severity; N18.9 Chronic kidney disease, unspecified; X58.XXXA Exposure to other specified factors, initial encounter; Y92.129 Unspecified place in nursing home as the place of occurrence of the external cause; D50.9 Iron deficiency anemia, unspecified; E86.9 Volume depletion, unspecified; E78.5 Hyperlipidemia, unspecified; Z87.891 Personal history of nicotine dependence
CPT/HCPCS: 36415; 71010-TC; 73630-TC; 80048-TC; 80053-TC; 80061-TC; 80076-TC; 80202-TC; 82272-TC; 82962-TC; 83540-TC; 83605-TC; 83735-TC; 83880; 84100-TC; 84443-TC; 84484-TC; 85025-TC; 85652-TC; 85730-TC; 87040-TC; 87070-TC; 87081-TC; 87186-TC; 93925-TC; A4606; A6402; A6403; J0885; J1815; J2543; J3370; J3490; J7060; Z7610